=== PATIENT | female | born 1945 | race Two or more races ===

== ENCOUNTER 2022-11-07 10:01 | Emergency (ER) | payer MEDICARE, OTHER ==
[~2022-11-07] VITALS: Ht 152.4 cm; Wt 68.9 kg
[2022-11-07 13:02] VITALS: BP 144/88
== END 2022-11-07 13:04 | disposition home or self-care (01) ==
LOC: ER 10:10
DX: S52.512A Displaced fracture of left radial styloid process, initial encounter for closed fracture (principal); W18.30XA Fall on same level, unspecified, initial encounter; Y93.89 Activity, other specified; Y92.89 Other specified places as the place of occurrence of the external cause; Y99.8 Other external cause status
CPT/HCPCS: 73090-TC; 73110